=== PATIENT | female | born 1955 | race Caucasian/White ===

== ENCOUNTER 2017-01-25 11:32 | Outpatient (CLI) ==
[2016-03-02 23:38] VITALS: BMI 24.0
--- NOTE | 2017-01-25 12:48 | DI ---
EXAM: Four x-rays of the cervical spine. Comparison: 07/30/2016. Reason for exam: Disc disease. FINDINGS: Similar appearing postoperative changes are seen after corpectomy at C5-6 with interverte bral body graft spacer and anterior cervical discectomy and fusion with posterior pedicle screw and maria g fixation spanning C4-C7. There is multilevel degenerative disc disease with straightening of the cervical lordotic curve. No evidence of hardware complication or graft extrusion. Images appear s imilar to the prior study. The dens appears intact on the Rangel view. Impression: Similar appearing operative changes after C5-6 corpectomy with stabilization hardware sp anning C4-C7.
== END 2017-01-25 11:33 | disposition home or self-care (01) ==
LOC: RAD 11:32
PROVIDERS: ATTEND Neurological Surgery
DX: M50.020 Cervical disc disorder with myelopathy, mid-cervical region, unspecified level (principal)

== ENCOUNTER 2019-01-28 11:41 | Outpatient (CLI) ==
[2016-03-02 23:38] VITALS: BMI 24.0
--- NOTE | 2019-01-28 13:07 | DEXA ---
EXAM: BONE DENSITOMETRY HISTORY: Screening for osteoporosis. Post menopausal. FINDINGS: Exam of the lumbar spine demonstrated a total bone mineral density of 0.986 g/cm2. T score is -1.6. Exam of the hips revealed a total mean bone mineral density of 0.799 g/cm2. Mean hip T score: -1.7 FRAX WHO Fracture Risk Assessment. Ten year probability of fracture (%). Major Osteoporotic Fracture 21.1% Hip Fracture 4.4%. IMPRESSION: IMPRESSION: 1. Values presented indicate osteopenia of the spine. 2. The mean values of the hips were osteopenic.
== END 2019-01-28 11:42 | disposition home or self-care (01) ==
LOC: RAD 11:41
PROVIDERS: ATTEND Family Medicine
DX: Z12.31 Encounter for screening mammogram for malignant neoplasm of breast (principal); Z78.0 Asymptomatic menopausal state; M19.90 Unspecified osteoarthritis, unspecified site; M85.9 Disorder of bone density and structure, unspecified; M85.80 Other specified disorders of bone density and structure, unspecified site